=== PATIENT | male | born 1980 | race Caucasian/White ===

== ENCOUNTER → 2017-01-24 | Outpatient (CLI) | payer BC ==
[2017-01-24 09:24] LABS: BUN 17 mg/dL (7-18)
[2017-01-24 09:26] LABS: GFR (ESTIMATED) 75 ML/MIN (>60)
== END ==
LOC: LAB 08:34
PROVIDERS: Family Medicine
DX: R73.01 Impaired fasting glucose (principal); E78.5 Hyperlipidemia, unspecified